=== PATIENT | male | born 1990 | race African-American/Black ===

== ENCOUNTER 2024-09-04 14:18 | Emergency (ER) | payer OTHER ==
[~2024-09-04] VITALS: Ht 172.7 cm; Wt 73.9 kg
[2024-09-04 14:51] VITALS: BP 110/66; PULSE 74; RESP 14; TEMP 98.4; O2SAT 100
[2024-09-04] MEDS ORDERED: CEPH500T MT (16:38)
[2024-09-04] MEDS ORDERED: SULF1TAB48 MT (16:38)
== END 2024-09-04 17:05 | disposition home or self-care (01) ==
LOC: ER 14:18
DX: L02.415 Cutaneous abscess of right lower limb (principal)
CPT/HCPCS: 99283